=== PATIENT | female | born 1995 | race Two or more races ===

== ENCOUNTER 2017-09-11 16:26 | Emergency (ER) | payer BC ==
[~2017-09-11] VITALS: Ht 167.6 cm; Wt 47.6 kg
[2017-09-11] MEDS ORDERED: Acetaminophen 500mg (ES) tab ORAL ONE (17:00)
--- NOTE | 2017-09-11 17:11 | Emergency Room Report ---
History of Present Illness General Chief Complaint: Lower Extremity Injury Source: Patient Present Illness HPI 21-year-old female patient presents ER complaining of right lower extremity pain since 3 days ago. Reports that she was hiking when she slipped and fell and landed on her right knee. Complaining of right knee and right lower leg pain. Denies ankle pain. Reports his been able to ambulate without difficulty. Reports did not hit her head or lose consciousness. Reports has not been taking any medication for pain relief. Reports treating abrasions on right lower leg and left knee at home. Reports abrasions were cleaned. Denies other acute symptoms. Allergies: Coded Allergies: BACITRACIN (Unverified Allergy, Unknown, 09/11/17) NEOMYCIN (Unverified Allergy, Unknown, 09/11/17) POLYMYXIN B (Unverified Allergy, Unknown, 09/11/17) Patient History Past Medical History: see triage record Last Menstrual Period: 09/05/2017 Reviewed Nursing Documentation: PMH: Agreed; PSxH: Agreed Nursing Documentation-PMH Past Medical History: No History, Except For Review of Systems All Other Systems: negative except mentioned in HPI Physical Exam Vital Signs Date Time Temp Pulse Resp B/P (MAP) Pulse Ox O2 Delivery O2 Flow Rate FiO2 09/11/17 16:30 98.6 51 16 94/56 96 98.6 Sp02 EP Interpretation: reviewed, normal General Appearance: well appearing, no apparent distress, alert, GCS 15, non- toxic Head: normocephalic, atraumatic Eyes: bilateral eye normal inspection, bilateral eye PERRL ENT: hearing grossly normal, normal pharynx, no angioedema, normal voice, uvula midline, moist mucus membranes Neck: full range of motion Respiratory: lungs clear, normal breath sounds, no rhonchi, no respiratory distress, no accessory muscle use, no wheezing, speaking full sentences Cardiovascular #1: regular rate, rhythm, no edema Cardiovascular #2: 2+ dorsalis pedis (R), 2+ dorsalis pedis (L) Musculoskeletal: back normal, digits/nails normal, gait/station normal, normal range of motion - left knee, non-tender, no calf tenderness, decreased range of motion - secondary to pain, worsens with flexion, swelling - mild edema, no erythema, other - negative posterior and anterior drawer test, negative syndesmotic squeeze test, tender Neurologic: alert, oriented x3, responsive, motor strength/tone normal, sensory intact Psychiatric: mood/affect normal Skin: abrasions - bilateral knees, anterior right thornton, left lateral thornton, no surrounding erythema or edema, no active bleeding Medical Decision Making PA Attestation Dr. Peña is my supervising Physician whom patient management has been discussed with. Diagnostic Impression: Primary Impression: Right knee injury Additional Impression: Lower leg abrasion ER Course Pt. presents to the ED c/o right lower extremity pain. Ddx considered but are not limited to fracture, sprain, strain, contusion, dislocation. No erythema, no warmth to touch, no fever, nontoxic appearing, low suspicion for septic joint. Vital signs: are WNL, pt. is afebrile Ordered X-ray and pain medication. ER COURSE Provided with pain medication. An X-ray of the and right lower leg negative for acute disease per the official reading. An X-ray of the right knee negative for acute disease but the official reading. provided with copy of xray results. likely knee sprain, likely soft tissue vs ligamentous injury. Follow-up with PCP. patient declined Neftaly wrap and crutches, states she has them at home. patient observed ambulating independently without difficulty. Patient instructed on RICE method: rest, ice, compression, elevation. Patient instructed on rest, ice and heat. Patient instructed to be WBAT Followup with primary care provider. Discuss referral to ortho/pain management/ PT as needed. Discuss further imaging with MRI/CT as needed. denies need for treatment of abrasions at this time, treating at home. Instructed to keep clean and dry. DISCHARGE: -Rx provided for Tylenol for pain symptoms. At this time pt. is stable for d/c to home. Patient is resting comfortably, in no acute distress, nontoxic appearing, talking without difficulty. Will provide printed patient care instructions, and any necessary prescriptions. Patient instructed to follow with primary care provider in 3 - 5 days and to request further follow-up as needed. Care plan and follow up instructions have been discussed with the patient prior to discharge. Take medications as directed. Patient questions asked and answered. Patient reports understanding and agreement to treatment plan. ER precautions given, patient instructed to return to ER immediately for any new or worsening of symptoms. - Please note that this Emergency Department Report was dictated using Dragon master scheduler technology software, occasionally this can lead to erroneous entry secondary to interpretation by the dictation equipment. Other X-Ray Diagnostic Results Other X-Ray Diagnostic Results #1: X-Ray ordered: right knee # of Views/Limited Vs Complete: 3 View Indication: Pain EP Interpretation: Yes PA Xray: Interpretation reviewed, by supervising MD, and agrees with findings. Interpretation: no dislocation, no soft tissue swelling, no fractures Impression: No acute disease PA Scribe Text Ryan Humphrey PA-C Other X-Ray Diagnostic Results #2: X-Ray ordered: right lower leg # of Views/Limited Vs Complete: 3 View Indication: Pain EP Interpretation: Yes PA Xray: Interpretation reviewed, by supervising MD, and agrees with findings. Interpretation: no dislocation, no soft tissue swelling, no fractures Impression: No acute disease PA Scribe Text Ryan Humphrey PA-C Last Vital Signs Date Time Temp Pulse Resp B/P (MAP) Pulse Ox O2 Delivery O2 Flow Rate FiO2 09/11/17 16:30 98.6 51 16 94/56 96 98.6 Disposition: HOME, SELF-CARE Condition: Stable Scripts Acetaminophen* (TYLENOL EXTRA STRENGTH*) 500 Mg Tablet 500 MG ORAL Q8H PRN for Prn Headache/Temp > 101, #30 TAB 0 Refills Prov: Anton Humphrey 09/11/17 Referrals: Arcenio Zavala MD (PCP) Patient Instructions: Abrasion, [id number], Knee Sprain Additional Instructions: Patient instructed to follow up with primary care provider and discuss further referral to orthopedics and physical therapy. Discuss further imaging at that time. Patient instructed on RICE method: rest, ice, compression, elevation. Patient instructed to WBAT. Take medications as directed. Keep abrasions clean and dry. Patient questions asked and answered. ER precautions given, patient instructed to return to ER immediately for any new or worsening of symptoms. Anton Humphrey Sep 11, 2017 17:11
--- NOTE | 2017-09-11 18:01 | Diagnostic Imaging Report ---
EXAM: XR Right Knee, 3 views CLINICAL HISTORY: PAIN TECHNIQUE: Three views of the right knee. COMPARISON: No relevant prior studies available. FINDINGS: Bones/joints: Unremarkable. No acute fracture. No dislocation. Soft tissues: Unremarkable. IMPRESSION: Normal right knee radiographs.
--- NOTE | 2017-09-11 18:01 | Diagnostic Imaging Report ---
EXAM: XR Right Tibia and Fibula, 2 Views CLINICAL HISTORY: PAIN TECHNIQUE: Frontal and lateral views of the right tibia and fibula. COMPARISON: No relevant prior studies available. FINDINGS: Bones/joints: Unremarkable. No acute fracture. No dislocation. Soft tissues: Unremarkable. No radiopaque foreign body. IMPRESSION: Normal right leg radiographs.
[2017-09-11] MEDS ORDERED: TYLENOL EXTRA500 MG ORAL (18:07)
[2017-09-11 18:20] VITALS: BP 94/56
== END 2017-09-11 18:23 | disposition home or self-care (01) ==
LOC: EMR 16:52
DX: S80.212A Abrasion, left knee, initial encounter (principal); S80.211A Abrasion, right knee, initial encounter; S80.812A Abrasion, left lower leg, initial encounter; S80.811A Abrasion, right lower leg, initial encounter; W19.XXXA Unspecified fall, initial encounter; Y93.01 Activity, walking, marching and hiking; Y92.89 Other specified places as the place of occurrence of the external cause; Z88.1 Allergy status to other antibiotic agents
CPT/HCPCS: 99284